=== PATIENT | female | born 1955 | race Caucasian/White ===

== ENCOUNTER 2016-07-08 12:56 | Emergency (ER) | payer OTHER ==
--- NOTE | 2016-07-08 12:59 | UCPHY ---
H & P Patient Type: New HPI/ROS: HPI CHIEF COMPLAINT: [ ] HISTORY OF PRESENT ILLNESS: [Need 4: Location, Duration, Severity, Quality, Context, Timing Modifying Factors, Associated S&S] Past Medical History: Past Surgical History: Social History: Family History: ROS REVIEW OF SYSTEMS: A comprehensive 10 point review of systems is otherwise negative aside from elements mentioned in the history of present illness. Exam Constitutional triage nursing summary reviewed, vital signs reviewed, awake/ alert. Eyes normal conjunctivae and sclera, EOMI, PERRLA. HENT normal inspection, atraumatic, moist mucus membranes, no epistaxis, neck supple/ no meningismus, no raccoon eyes. Respiratory clear to auscultation bilaterally, normal breath sounds, no respiratory distress, no wheezing. Cardiovascular rate normal, regular rhythm, no murmur, no edema, distal pulses normal. Gastrointestinal soft, non-tender, no rebound, no guarding, normal bowel sounds, no distension, no pulsatile mass. Genitourinary no CVA tenderness. Musculoskeletal no midline vertebral tenderness, full range of motion, no calf swelling, no tenderness of extremities, no meningismus, good pulses, neurovascularly intact. Skin pink, warm, & dry, no rash, skin atraumatic. Neurologic awake, alert and oriented x 3, AAOx3, moves all 4 extremities equally, motor intact, sensory intact, CN II-XII intact, normal cerebellar, normal vision, normal speech. Psychiatric normal mood/affect. Heme/Lymph/Immune no lymphadenopathy. Differential Diagnosis: Medical Decision Making: Re-evaluation: Source: Patient Departure - Departure Referrals: RAYSA JORDAN [Primary Care Provider] - As per Instructions
[2016-07-08 13:15] VITALS: BP 149/95; PULSE 90; RESP 93; TEMP 97.9
--- NOTE | 2016-07-08 13:45 | UCPHY ---
H & P Patient Type: New Chief Complaint Nursing Narrative: took a bad step, twisted ankle HPI/ROS: HPI CHIEF COMPLAINT: Left lateral ankle pain, left distal tib-fib pain HISTORY OF PRESENT ILLNESS: This patient very pleasant 60-year-old female she presents to the urgent care with left lateral malleolus pain and left distal tib -fib pain status post mechanical trip and fall while carrying her dog at 6:00 a.m. outside the door. She was at the bottom misstepped. She landed on her left lateral leg lower aspect and has pain to her distal tib-fib and lateral malleolus. She is able to bear weight. She denies any other areas of injury. She tells me her pain is 3/10. Past Medical History: Diabetes Past Surgical History: Denies recent any pertinent surgical history Social History: Denies use of drugs alcohol tobacco products Family History: Noncontributory ROS REVIEW OF SYSTEMS: A comprehensive 10 point review of systems is otherwise negative aside from elements mentioned in the history of present illness. Exam Constitutional triage nursing summary reviewed, vital signs reviewed, awake/ alert. Eyes normal conjunctivae and sclera, EOMI, PERRLA. HENT normal inspection, atraumatic, moist mucus membranes, no epistaxis, neck supple/ no meningismus, no raccoon eyes. Respiratory clear to auscultation bilaterally, normal breath sounds, no respiratory distress, no wheezing. Cardiovascular rate normal, regular rhythm, no murmur, no edema, distal pulses normal. Gastrointestinal soft, non-tender, no rebound, no guarding, normal bowel sounds, no distension, no pulsatile mass. Genitourinary no CVA tenderness. Musculoskeletal left lower extremity: Tender palpation over the lateral malleolus, tender to palpation over the distal tib-fib, no knee tenderness, full range of motion of the knee and ankle, distally neurovascular intact good cap refill, good pulse, good sensation, no significant swelling or ecchymosis, no no midline vertebral tenderness, full range of motion, no calf swelling, no tenderness of extremities, no meningismus, good pulses, neurovascularly intact. Skin pink, warm, & dry, no rash, skin atraumatic. Neurologic awake, alert and oriented x 3, AAOx3, moves all 4 extremities equally, motor intact, sensory intact, CN II-XII intact, normal cerebellar, normal vision, normal speech. Psychiatric normal mood/affect. Heme/Lymph/Immune no lymphadenopathy. Differential Diagnosis: Includes but is not limited to in a particular order, soft tissue injury, bony abnormality, bony fracture of the tib-fib, distal fibula fracture, spiral fibular fracture, ankle fracture, ankle dislocation, bony contusion, soft tissue injury Medical Decision Making: Plan for patient is to have x-ray of the left ankle, x -ray of the tib-fib Re-evaluation: ED x-ray left ankle: joint effusion present. Otherwise unremarkable. No evidence of acute fracture image interpreted myself ED x-ray left tib-fib: Negative for acute bony abnormality. Image interpreted by myself. 1354: I do recommend that this patient follows up with orthopedics given the swelling around the ankle joint. Will refer to orthopedics. She be placed in her walking boot with Miles wrap. Source: Patient - Personal History Current Tetanus Diphtheria and Acellular Pertussis (TDAP): Yes - Medical/Surgical History Hx Asthma: No Hx Chronic Respiratory Disease: No Hx Diabetes: Yes Hx Cardiac Disease: No Hx Renal Disease: No Hx Cirrhosis: No Hx Alcoholism: No Hx HIV/AIDS: No Hx Splenectomy or Spleen Trauma: No Other PMH: DM - Family History Significant Family History: No pertinent family hx - Social History Smoking Status: Never smoked Constitutional: Initial Vital Signs Temperature (C) 36.6 C 07/08/16 13:13 Heart Rate 90 07/08/16 13:13 Respiratory Rate 93 H 07/08/16 13:13 Blood Pressure 149/95 H 07/08/16 13:13 O2 Delivery Mode Room Air Allergies/Adverse Reactions: hydromorphone HCl [From Dilaudid] Allergy (Verified 07/08/16 13:16) Home Medications: Medication Instructions Recorded Aspirin 07/08/16 Humalog 07/08/16 Ibuprofen [Motrin (*)] 800 mg PO Q6-8PRN #7 tab 07/08/16 Lantus 100 UNITS/ML (*) 07/08/16 Lisinopril 07/08/16 Metformin HCl 07/08/16 Departure - Departure Disposition: Home, Routine, Self-Care Clinical Impression: Ankle sprain Qualifiers: Encounter type: initial encounter Involved ligament of ankle: other ligament Laterality: left Qualified Code(s): S93.492A - Sprain of other ligament of left ankle, initial encounter Condition: Good Instructions: Ankle Sprain (ED) Referrals: RAYSA JORDAN [Primary Care Provider] - As per Instructions Chauncey Powell MD [Medical Doctor] - As per Instructions Prescriptions: Ibuprofen [Motrin (*)] 800 mg PO Q6-8PRN #7 tab - PQRS PQRS Measurement: n/a
== END 2016-07-08 14:17 | disposition home or self-care (01) ==
LOC: CED 12:56
DX: S93.492A Sprain of other ligament of left ankle, initial encounter (principal); M25.472 Effusion, left ankle; W10.8XXA Fall (on) (from) other stairs and steps, initial encounter; Y92.019 Unspecified place in single-family (private) house as the place of occurrence of the external cause; Y93.K9 Activity, other involving animal care; Y99.8 Other external cause status; E11.9 Type 2 diabetes mellitus without complications
CPT/HCPCS: 73590-PO; 73610-PO; 99204-PO; G0463-PO

== ENCOUNTER → 2016-11-29 | Outpatient (CLI) | payer OTHER | LOC: BRMIMAGING 11:21 | PROVIDERS: ATTEND Family Medicine | DX: Z12.31 Encounter for screening mammogram for malignant neoplasm of breast (principal) | CPT/HCPCS: G0202 ==